=== PATIENT | male | born 1990 | race Caucasian/White ===

== ENCOUNTER 2022-10-17 21:18 | Emergency (ER) | payer OTHER | END 2022-10-18 00:09 | disposition home or self-care (01) | LOC: JP.ED 21:18 | DX: S43.401A Unspecified sprain of right shoulder joint, initial encounter (principal); Z72.0 Tobacco use; X50.1XXA Overexertion from prolonged static or awkward postures, initial encounter | CPT/HCPCS: 73030-26-RT; 73030-RT; 99283 ==

== ENCOUNTER 2024-05-02 23:59 | Emergency (ER) | payer MEDICAID ==
[2024-05-03] MEDS: LORazepam 0.5 MG Tab PO ONE (00:43)
[2024-05-03] MEDS: Alum Hydrox/Mag Hydrox/Simeth 15 ML, Lidocaine 2% 15 ML PO ONE (00:43)
[2024-05-03 00:46] LABS: BASOPHILS ABSOLUTE AUTO 0.05 K/uL (0.00-0.10); BASOPHILS PERCENT AUTO 0.5 % (0.1-1.3); EOSINOPHILS PERCENT AUTO 4.8 % (0.0-5.4); HEMOGLOBIN 15.2 g/dL (12.9-16.9); IMMATURE GRAN ABSOLUTE AUTO 0.06 K/uL (0.00-0.23); IMMATURE GRAN PERCENT AUTO 0.6 % (0.0-0.7); LYMPHOCYTES ABSOLUTE AUTO 2.57 K/uL (0.8-3.3); LYMPHOCYTES PERCENT AUTO 24.8 % (11.4-47.7); MEAN CORPUSCULAR HEMOGLOBIN 29.9 pg (31.6-35.5); MEAN CORPUSCULAR HGB CONC 35.3 g/dL (31.6-35.5); MEAN CORPUSCULAR VOLUME 84.6 fL (81.4-99.0); MONOCYTES ABSOLUTE AUTO 0.73 K/uL (0.20-0.90); MONOCYTES PERCENT AUTO 7.1 % (3.3-12.6); NEUTROPHILS ABSOLUTE AUTO 6.44 K/uL (1.0-7.6); NEUTROPHILS PERCENT AUTO 62.2 % (40.0-78.1); PLATELET COUNT,PLT 280 K/uL (130-375); RED BLOOD CELL COUNT 5.08 M/uL (4.14-5.76); WHITE BLOOD CELL COUNT,WBC 10.4 K/uL (3.2-11.0)
[2024-05-03 01:10] LABS: A/G RATIO 1.2 (1.2-2.2); ALANINE AMINOTRANSFERASE,ALT 81 U/L (12-78); ALBUMIN 4.3 g/dL (3.4-5.0); ALKALINE PHOSPHATASE 78 U/L (46-116); ANION GAP 12.3 mmol/L (5.0-14.0); ASPARTATE AMNIOTRANSFERASE,AST 39 U/L (15-37); BILIRUBIN TOTAL 0.2 mg/dL (0.2-1.0); BLOOD UREA NITROGEN,BUN 8 mg/dL (7-18); CALCIUM 9.1 mg/dL (8.5-10.1); CARBON DIOXIDE,CO2 28 mmol/L (21-32); CHLORIDE,CL 101 mmol/L (100-108); CREATININE 0.8 mg/dL (0.8-1.3); EST CRCL DRUG DOSING (CG) 146.85 mL/min; ESTIMATED GFR 121 mL/min (>60); GLUCOSE RANDOM 103 mg/dL (74-106); POTASSIUM,K 3.3 mmol/L (3.6-5.2); SODIUM,NA 138 mmol/L (140-148); TROPONIN I HIGH SENSITIVITY < 4.0 pg/mL (<=60.3)
== END 2024-05-03 01:52 | disposition home or self-care (01) ==
LOC: JP.ED 23:59
DX: K21.9 Gastro-esophageal reflux disease without esophagitis (principal); F17.210 Nicotine dependence, cigarettes, uncomplicated
CPT/HCPCS: 36415; 80053; 84484; 85025; 93010; 99283; 99284; A9270-GY

== ENCOUNTER 2024-09-04 16:22 | Emergency (ER) | payer SELFPAY ==
[2024-09-04 18:34] LABS: BASOPHILS ABSOLUTE AUTO 0.05 K/uL (0.00-0.10); BASOPHILS PERCENT AUTO 0.5 % (0.1-1.3); HEMATOCRIT 44.1 % (38.4-49.7); HEMOGLOBIN 15.1 g/dL (12.9-16.9); IMMATURE GRAN PERCENT AUTO 0.2 % (0.0-0.7); LYMPHOCYTES ABSOLUTE AUTO 1.93 K/uL (0.8-3.3); LYMPHOCYTES PERCENT AUTO 19.5 % (11.4-47.7); MEAN CORPUSCULAR HGB CONC 34.2 g/dL (31.6-35.5); MEAN CORPUSCULAR VOLUME 87.5 fL (81.4-99.0); MONOCYTES PERCENT AUTO 7.1 % (3.3-12.6); NEUTROPHILS PERCENT AUTO 69.7 % (40.0-78.1); PLATELET COUNT,PLT 313 K/uL (130-375); RED BLOOD CELL COUNT 5.04 M/uL (4.14-5.76); WHITE BLOOD CELL COUNT,WBC 9.9 K/uL (3.2-11.0)
[2024-09-04 18:38] LABS: IMMATURE GRAN ABSOLUTE AUTO 0.02 K/uL (0.00-0.23)
[2024-09-04 18:56] LABS: A/G RATIO 1.2 (1.2-2.2); ALANINE AMINOTRANSFERASE,ALT 39 U/L (12-78); ALBUMIN 4.4 g/dL (3.4-5.0); ALKALINE PHOSPHATASE 83 U/L (46-116); ANION GAP 11.4 mmol/L (5.0-14.0); ASPARTATE AMNIOTRANSFERASE,AST 21 U/L (15-37); BILIRUBIN TOTAL 0.2 mg/dL (0.2-1.0); BLOOD UREA NITROGEN,BUN 17 mg/dL (7-18); CALCIUM 9.8 mg/dL (8.5-10.1); CARBON DIOXIDE,CO2 28 mmol/L (21-32); CHLORIDE,CL 103 mmol/L (100-108); CREATININE 0.9 mg/dL (0.8-1.3); EST CRCL DRUG DOSING (CG) 129.33 mL/min; ESTIMATED GFR 116 mL/min (>60); GLUCOSE RANDOM 91 mg/dL (74-106); PROTEIN TOTAL,TP 8.1 g/dL (6.4-8.2); SODIUM,NA 142 mmol/L (140-148)
[2024-09-04 18:58] LABS: MAGNESIUM 2.1 mg/dL (1.8-2.4)
== END 2024-09-04 20:20 | disposition home or self-care (01) ==
LOC: JP.ED 16:22
DX: R00.2 Palpitations (principal); F17.210 Nicotine dependence, cigarettes, uncomplicated
CPT/HCPCS: 36415; 71046; 71046-26; 80053; 83735; 84484; 85025; 93005; 99285

== ENCOUNTER 2024-12-01 20:06 | Emergency (ER) | payer SELFPAY | END 2024-12-01 22:30 | disposition home or self-care (01) | LOC: JP.ED 20:06 | DX: S42.252A Displaced fracture of greater tuberosity of left humerus, initial encounter for closed fracture (principal); Z86.16 Personal history of COVID-19; X58.XXXA Exposure to other specified factors, initial encounter | CPT/HCPCS: 73030-26-LT; 73030-LT; 99283 ==